=== PATIENT | female | born 1945 | race Caucasian/White ===

== ENCOUNTER → 2017-01-16 | Outpatient (CLI) | payer MEDICARE ==
[2017-01-16 09:57] LABS: Anion Gap 8 mmol/L; Blood Urea Nitrogen 13 mg/dL (7-17); Calcium 9.3 mg/dL (8.4-10.2); Carbon Dioxide 23 mmol/L (22-30); Chloride 109 mmol/L (98-107); Glucose 78 mg/dL (74-99); Non-African American GFR(MDRD) >60 (>60 ml/min/1.73 sqM); Potassium 4.3 mmol/L (3.5-5.1); Sodium 140 mmol/L (137-145)
[2017-01-16 10:00] LABS: Basophils # (A) 0.1 k/uL (0-0.2); Basophils % (A) 1 %; CH 31.6; CHCM 33.1; Eosinophils # (A) 0.2 k/uL (0-0.7); Eosinophils % (A) 3 %; HCT 37.4 % (34.0-46.0); HDW 2.45; HGB 12.1 gm/dL (11.4-16.0); Luc # (Auto) 0.11; Luc % (Auto) 2; Lymphocytes % (A) 35 %; MCH 30.9 pg (25.0-35.0); MCHC 32.3 g/dL (31.0-37.0); MCV 95.7 fL (80.0-100.0); Mean Platelet Volume 7.4; Monocytes # (A) 0.3 k/uL (0-1.0); Monocytes % (A) 6 %; Neutrophils # (A) 2.9 k/uL (1.3-7.7); Neutrophils % (A) 52 %; RDW 13.2 % (11.5-15.5); WBC 5.6 k/uL (3.8-10.6)
== END | disposition home or self-care (01) ==
LOC: LABPAT 09:19
PROVIDERS: ATTEND Urology
DX: Z01.812 Encounter for preprocedural laboratory examination (principal); E03.9 Hypothyroidism, unspecified; N39.41 Urge incontinence; N39.0 Urinary tract infection, site not specified
CPT/HCPCS: 80048; 85025; 87086

== ENCOUNTER 2017-01-24 07:24 | Day surgery (SDC) | payer MEDICARE ==
[2017-01-17 15:25] VITALS: BMI 24.7
[~2017-01-24 07:24] MED LIST: CLINDAMYCIN 900 MG in DEXTROSE 5% IN WATER 50 ML IVPB ONE; DEXAMETHASONE SOD PHOSPHATE 10 MG/ML 1 ML VIAL IV ONE; HYDROmorphone 1 MG/ML 1 ML SYRINGE IVP PRN; LACTATED RINGERS 1,000 ML IV SCH; ONDANSETRON 4 MG/2 ML VIAL IVP ONE
[2017-01-24 08:11] VITALS: RESP 16
[2017-01-24] MEDS ORDERED: LIDOCAINE 1% 20 ML VIAL (10MG/ML) FOR IV START INTRADERMA ONE (08:11)
[2017-01-24] MEDS ORDERED: fentaNYL (PF) 50 MCG/ML 2 ML AMP ONE (09:29)
[2017-01-24] MEDS ORDERED: PROPOFOL 10 MG/ML 20 ML VIAL IV ONE (09:29)
[2017-01-24] MEDS ORDERED: MIDAZOLAM 2 MG/2 ML VIAL ONE (09:29)
[2017-01-24] MEDS ORDERED: ePHEDrine SULFATE/0.9% NACL/PF 50 MG/5 ML SYRINGE IV ONE (09:29)
[2017-01-24] MEDS ORDERED: BUPIVACAIN-EPI 0.5%-1:200,000 30 ML VIAL SQ ONE (09:50)
[2017-01-24] MEDS ORDERED: LACTATED RINGERS 1,000 ML IV ONE ×4 (10:32→11:28)
--- NOTE | 2017-01-24 10:39 | P.OP ---
Date of Procedure: 01/24/17 Preoperative Diagnosis: Urinary Urge Incontinence, Incomplete Bladder Emptying Postoperative Diagnosis: Same Procedure(s) Performed: Takedown of TOT sling Implants: Anesthesia: GETA Surgeon: Sandoval Nieves Estimated Blood Loss (ml): 50 IV fluids (ml): 900 Pathology: none sent Condition: stable Disposition: PACU Indications for Procedure: She is a 71 year old female with a history of A & P repair, excision of vaginal cystic lesion, and TOT done in [place] on 06/07/2016. She had urinary retention after the surgery, requiring a catheter for a week followed by [facility] for a week or more. She has been on Tolterodine LA 4 mg daily since the surgery, due to urgency and urge icontinence. She still feels that she is not emptying her bladder. She has to double void and reports nocturia times 3-4. UDS shows uninhibited contractions, and she appears to have bladder outflow obstruction with incomplete bladder emptying. I have reviewed her surgical records and suggested she undergo exploration with division of the sling. The procedure was reviewed in detail with the patient and her . I explained potential risks , which include anesthesia, bleeding, infection, lower urinary tract injury, persistent obstruction, persistent UUI, and recurrent NELDA. Operative Findings: Synthetic TOT sling cut left of midline. Description of Procedure: The patient was taken to the operating room and placed in the dorsal lithotomy position, with her legs supported in Noe stirrups. The perineum, lower abdomen, and vagina were prepped and draped sterilely. A 16-Martiniquais Shipman catheter was placed. 0.5% Marcaine with epinephrine was injected submucosally within the anterior vaginal wall, over the urethra. The scalpel was then used to make an anterior midline vaginal incision over the urethra. Metzenbaum scissors were used to dissect laterally within the submucosal plane on the left side. The synthetic sling was isolated. It was noted to be taught. Metzenbaum scissors were used to divide this on the left side, away from the midline. Cystoscopy was performed. The 30 lens was used to introduce the 19-Martiniquais Storz cystoscopic sheath through the urethra and into the bladder under direct vision. The urethra and bladder were unremarkable. There was no evidence of perforation. Both ureteral orifices were of normal anatomic location and configuration, and clear urine effluxed from both. No tumors or foreign bodies were seen. The bladder was emptied and the cystoscope was removed. A submucosal bleeder was controlled using a 4-0 Vicryl suture in a figure-of- eight fashion. Any other bleeders were controlled with electrocautery, attaining excellent hemostasis. The vaginal incision was then closed longitudinally using 2-0 Vicryl suture in a running fashion. All sponge and needle counts were correct. The patient tolerated the procedure well was taken to the recovery room in stable condition.
[2017-01-24 10:54] VITALS: TEMP 97.3
[2017-01-24 13:49] VITALS: BP 128/63; PULSE 51
== END 2017-01-24 14:00 | disposition home or self-care (01) ==
LOC: OR 07:24
PROVIDERS: ATTEND Urology
DX: N39.46 Mixed incontinence (principal); R33.9 Retention of urine, unspecified; R35.0 Frequency of micturition; R35.1 Nocturia; I34.1 Nonrheumatic mitral (valve) prolapse; E03.9 Hypothyroidism, unspecified; N39.0 Urinary tract infection, site not specified; M19.90 Unspecified osteoarthritis, unspecified site; M41.9 Scoliosis, unspecified; F41.9 Anxiety disorder, unspecified; J45.909 Unspecified asthma, uncomplicated; Z98.51 Tubal ligation status; Z79.82 Long term (current) use of aspirin; Z79.899 Other long term (current) drug therapy; Z91.041 Radiographic dye allergy status; Z91.040 Latex allergy status
CPT/HCPCS: 57287; J2250; J1100; J2405; J3010; J2704

== ENCOUNTER → 2022-01-01 | Outpatient (CLI) | payer MEDICARE ==
--- NOTE | 2022-01-02 09:07 | MM ---
Reason for Exam: Screening (asymptomatic). Last mammogram was performed 1 year(s) and 6 month(s) ago. Patient History: 1990, Lumpectomy on the Right side. Benign Ultrasound-Guided Cyst Aspiration. Risk Values: Bety 5 year model risk: 1.2%. NCI Lifetime model risk: 2.7%. Prior Study Comparison: 06/04/2018 Bilateral MG 3D screening mammo w/[facility], [place]. 06/09/2019 Bilateral MG 3D screening mammo w/[facility], [place]. 06/24/2020 Bilateral MG 3D screening mammo w/[facility], [place]. Tissue Density: The breast tissue is heterogeneously dense. This may lower the sensitivity of mammography. Findings: Analyzed By CAD. There is no suspicious group of microcalcifications or new suspicious mass in either breast. Benign calcifications are noted. Overall Assessment: Benign, BI-RAD 2 Management: Screening Mammogram of both breasts in 1 year. A clinical breast exam by your physician is recommended on an annual basis and results should be correlated with mammographic findings. Electronically signed and approved by: Gee Ly M.D. Radiologis
== END | disposition home or self-care (01) ==
LOC: RADMAMWWP 12:32
PROVIDERS: ATTEND Obstetrics & Gynecology
DX: Z12.31 Encounter for screening mammogram for malignant neoplasm of breast (principal)
CPT/HCPCS: 77063; 77067

== ENCOUNTER → 2023-11-01 | Outpatient (CLI) | payer MEDICARE ==
--- NOTE | 2023-11-21 11:43 | CT ---
EXAMINATION TYPE: CT wrist RT wo con DATE OF EXAM: 11/01/2023 4:01 PM COMPARISON: No relevant priors available CLINICAL INDICATION:Female, 78 years old with history of S62.164A NONDISP FX OF PISIFORM, RIGHT WRIST , INIT; PHH, Nondisplaced fx of pisiform, rt wrist. TECHNIQUE: Noncontrast CT was obtained of the right wrist. Axial coronal and sagittal reformatted im ages, soft tissue and bone window were submitted for review. 3-D reconstruction was created on a [employer] workstation. Contrast used: None. CT DLP: 141.9 mGycm, Automated exposure control for dose reduction was used. FINDINGS: Bone: Osseous mineralization appears appropriate. No lytic/blastic lesion is seen. Mild osteoarthritic colby ges. No erosions. No clearly visible fracture or evidence of dislocation. Pisiform, hamate, scaphoid look to be intact. No abnormal widening at the SL interspace. Soft tissues: Soft tissues are unremarkable. No focal fluid collection, soft tissue gas, or radiopaque foreign body is seen. A couple small linear densities seen dorsally at the level of the first carpal row favored to represent soft tissue calcifications, unlikely related to fracture however if so could be sequela of tiny chip fracture of the dorsal lunate, of uncertain age. Other: No other significant findings. IMPRESSION: No definite fracture or dislocation in the right wrist.
== END | disposition home or self-care (01) ==
LOC: RADCTMAIN 15:38
PROVIDERS: ATTEND Orthopaedic Surgery Hand Surgery
DX: S62.164A Nondisplaced fracture of pisiform, right wrist, initial encounter for closed fracture (principal); M25.531 Pain in right wrist; X58.XXXA Exposure to other specified factors, initial encounter

== ENCOUNTER 2023-12-09 12:37 | Day surgery (SDC) | payer MEDICARE ==
[~2023-12-09 12:37] MED LIST changes: -CLINDAMYCIN 900 MG in DEXTROSE 5% IN WATER 50 ML IVPB ONE; -DEXAMETHASONE SOD PHOSPHATE 10 MG/ML 1 ML VIAL IV ONE; -HYDROmorphone 1 MG/ML 1 ML SYRINGE IVP PRN; -ONDANSETRON 4 MG/2 ML VIAL IVP ONE
[2023-12-09 13:05] VITALS: TEMP 98.3
[2023-12-09] MEDS: IV FLUID CONTINUATION 1,000 ML IV ONE (13:18)
[2023-12-09] MEDS: ONDANSETRON 4 MG/2 ML VIAL IVP STA (14:42)
[2023-12-09] MEDS ORDERED: PROPOFOL 10 MG/ML 20 ML VIAL IV ONE (15:08)
--- NOTE | 2023-12-09 15:08 | P.GSHP ---
History of Present Illness H&P Date: 12/09/23 Chief Complaint: screening colonoscopy this a 78-year-old female [facility] had issues with GERD and dysphagia. Patient presents today for EGD. Past Medical History Past Medical History: Asthma, GERD/Reflux, Hyperlipidemia, Hypertension, Mitral Valve Prolapse (MVP), Osteoarthritis (OA), Thyroid Disorder Additional Past Medical History / Comment(s): urinary urgency and nighttime frequency, POTS, UTI's, states "slow heart rate and low b/p"; possible hx. TIA seen on MRI per pt. Tremors. right shoulder arthritis. Current "raspy" voice, reflux, nausea in am. History of Any Multi-Drug Resistant Organisms: None Reported Past Surgical History: Appendectomy, Bladder Surgery, Breast Surgery, Cholecystectomy, Heart Catheterization, Hysterectomy, Joint Replacement, Orthopedic Surgery Additional Past Surgical History / Comment(s): cystocele/rectocele, bladder sling, rt knee arthroscopy, RIGHT TOTAL KNEE, oral surgery to roof of mouth, ri ght nipple surgery, sinus surgery Past Anesthesia/Blood Transfusion Reactions: Previous Problems w/ Anesthesia, Postoperative Nausea & Vomiting (PONV) Additional Past Anesthesia/Blood Transfusion Reaction / Comment(s): drop in BP and pulse with anesthesia Smoking Status: Never smoker - Past Family History Mother Additional Family Medical History / Comment(s): heart and bowel problems Father Family Medical History: Diabetes Mellitus, Seizure Disorder Additional Family Medical History / Comment(s): heart problems Sister(s) Family Medical History: Cancer Additional Family Medical History / Comment(s): 2 sisters breast [place] Medications and Allergies Home Medications Medication Instructions Recorded Confirmed Type Levothyroxine Sodium [Synthroid] 75 mcg PO QAM 11/09/13 12/05/23 History Latanoprost Ophth [Xalatan 0.005%] 1 drops BOTH EYES HS 03/25/15 12/05/23 History Biotin 5 mg PO DAILY 12/16/15 12/05/23 History Cranberry Fruit Extract [Cranberry] 500 mg PO DAILY 12/16/15 12/05/23 History Glucosamine/Chondr Enriquez A Sod [Osteo 1 each PO DAILY 12/16/15 12/05/23 History Bi-Flex Caplet] Krill/Om-3/Dha/Epa/Phospho/Ast 1 each PO DAILY 12/16/15 12/05/23 History [[place]-3 Krill Oil 300 mg Sfgl] Multivitamins, Thera [Multivitamin] 1 tab PO DAILY 12/16/15 12/05/23 History Azelastine HCl [Astepro] 1 spray NASAL BID 12/05/23 12/09/23 History Coconut Oil 1,000 mg PO DAILY 12/05/23 12/05/23 History Famotidine [Pepcid] 20 mg PO BID 12/05/23 12/09/23 History Losartan [Cozaar] 12.5 mg PO HS 12/05/23 12/05/23 History Primidone [Mysoline] 25 mg PO BID 12/05/23 12/05/23 History Slow-Mag 2 tab PO DAILY 12/05/23 12/05/23 History Tart Arita 1 dose PO BID 12/05/23 12/05/23 History Allergies Allergy/AdvReac Type Severity Reaction Status Date / Time iodine Allergy Severe Anaphylaxis Verified 12/09/23 12:55 latex Allergy Severe Swelling, Verified 12/09/23 12:55 itching Penicillins Allergy Severe Rash/Hives, Verified 12/09/23 12:55 SOB cephalexin monohydrate Allergy Unknown Rash/Hives Verified 12/09/23 12:55 [From Keflex] gemifloxacin mesylate Allergy Unknown Nausea & Verified 12/09/23 12:55 [From Factive] Vomiting nitrofurantoin Allergy Unknown Vomiting Verified 12/09/23 12:55 [From Macrobid] nitrofurantoin Allergy Unknown Vomiting Verified 12/09/23 12:55 macrocrystalline [From Macrobid] sulfasalazine Allergy Unknown Rash/Hives Verified 12/09/23 12:55 [From Azulfidine] verapamil HCl [From Verelan] Allergy Unknown LOW BLOOD Verified 12/09/23 12:55 PRESSURE ciprofloxacin Allergy Unknown Verified 12/09/23 12:55 prednisone Allergy Dyspnea, Verified 12/09/23 12:55 RED SKIN levofloxacin AdvReac Unknown Verified 12/09/23 12:55 x-ray dye Allergy Severe Anaphylaxis Uncoded 12/09/23 12:55 noroxin Allergy Unknown Rash/Hives, Uncoded 12/09/23 12:55 vomiting antibiotics w/ SE of AdvReac tendonitis Uncoded 12/09/23 12:55 tendonitis Surgical - Exam Vital Signs Temp Pulse Resp BP Pulse Ox 98.3 F 63 18 171/72 99 12/09/23 13:04 12/09/23 13:04 12/09/23 13:04 12/09/23 13:04 12/09/23 13:04 - General well developed, well nourished, no distress - Eyes PERRL - ENT normal pinna - Neck no masses - Respiratory normal expansion - Cardiovascular Rhythm: regular - Abdomen Abdomen: soft, non tender Assessment and Plan Assessment: GERD, dysphagia. We'll perform EGD
--- NOTE | 2023-12-09 15:15 | P.OP ---
Date of Procedure: 12/09/23 Preoperative Diagnosis: dysphagia Postoperative Diagnosis: antral gastritis Hiatal hernia Esophagitis Procedure(s) Performed: EGD Anesthesia: MAC Surgeon: Art Edwards Pathology: other (antrum, esophagus) Condition: stable Disposition: PACU Description of Procedure: the patient's placed on the endoscopy table in the lateral position. She received IV sedation. The gastroscope placed oropharynx past esophagus and stomach. Scope was placed through the pylorus. The first and second portion of the duodenum appeared normal.scope was then brought back the antrum this appeared mildly inflamed. This was biopsied. The scope was then retroflexed and there was a moderate size hiatal hernia. The GE junction was at 38 cm. The distal esophagus appeared to be inflamed. There is evidence of a Schatzki ring forming. inflamed esophagus was biopsied. The proximal esophagus appeared normal. Scope was withdrawn for patient.
[2023-12-09 15:23] VITALS: RESP 16
[2023-12-09 15:38] VITALS: BP 152/68; PULSE 52
== END 2023-12-09 15:52 | disposition home or self-care (01) ==
LOC: ORWHC2ENDO 12:37
PROVIDERS: ATTEND Surgery
DX: K29.70 Gastritis, unspecified, without bleeding (principal); K21.00 Gastro-esophageal reflux disease with esophagitis, without bleeding; K44.9 Diaphragmatic hernia without obstruction or gangrene; J45.909 Unspecified asthma, uncomplicated; E78.5 Hyperlipidemia, unspecified; I10 Essential (primary) hypertension; I34.1 Nonrheumatic mitral (valve) prolapse; E07.9 Disorder of thyroid, unspecified; Z79.890 Hormone replacement therapy; Z79.899 Other long term (current) drug therapy; Z88.0 Allergy status to penicillin; Z88.1 Allergy status to other antibiotic agents; Z88.2 Allergy status to sulfonamides; Z88.8 Allergy status to other drugs, medicaments and biological substances; Z91.040 Latex allergy status; Z91.041 Radiographic dye allergy status
CPT/HCPCS: 88305; 43239; J2405; J2704

== ENCOUNTER → 2023-12-24 | Outpatient (CLI) | payer MEDICARE ==
[2023-12-24 19:37] LABS: Basophils # (A) 0.05 X 10*3/uL (0.00-0.10); Basophils % (A) 0.7 %; Eosinophils # (A) 0.08 X 10*3/uL (0.04-0.35); Eosinophils % (A) 1.2 %; HCT 36.2 % (37.2-46.3); HGB 11.9 g/dL (12.0-15.0); Lymphocytes # (A) 2.64 X 10*3/uL (0.90-5.00); Lymphocytes % (A) 38.8 %; MCH 31.6 pg (27.0-32.0); MCHC 32.9 g/dL (32.0-37.0); MCV 96.3 FL (80.0-97.0); Mean Platelet Volume 9.2 FL (9.5-12.2); Monocytes # (A) 0.55 X 10*3/uL (0.20-1.00); Monocytes % (A) 8.1 %; NRBC Per 100 WBC 0 X 10*3/uL (0.00-0.01); Neutrophils # (A) 3.45 X 10*3/uL (1.80-7.70); Neutrophils % (A) 50.6 %; Platelet Count 255 X 10*3/uL (140-440); RBC 3.76 X 10*6/uL (4.10-5.20); RDW 12.9 % (11.5-14.5); WBC 6.81 X 10*3/uL (4.50-10.00)
== END | disposition home or self-care (01) ==
LOC: LABPAT 14:19
PROVIDERS: ATTEND Surgery
DX: Z01.818 Encounter for other preprocedural examination (principal); I51.89 Other ill-defined heart diseases; K21.00 Gastro-esophageal reflux disease with esophagitis, without bleeding; K44.9 Diaphragmatic hernia without obstruction or gangrene; R94.31 Abnormal electrocardiogram [ECG] [EKG]; R00.1 Bradycardia, unspecified
CPT/HCPCS: 85025; 93005

== ENCOUNTER 2024-01-09 10:57 | Observation (INO) | payer MEDICARE ==
--- NOTE | 2024-01-09 11:17 | ED ---
Abdominal Pain HPI - General Source: patient, RN notes reviewed Mode of arrival: wheelchair Limitations: no limitations <Jessica Kerr - Last Filed: 01/09/24 11:14> - General Source: patient, family, RN notes reviewed Mode of arrival: wheelchair Limitations: no limitations <Regulo Cheney - Last Filed: 01/09/24 19:16> - General Chief Complaint: Abdominal Pain Stated Complaint: can't swallow Time Seen by Provider: 01/09/24 11:14 - History of Present Illness Initial Comments: Quick Note: This is a 78-year-old female who presents to the emergency department for epigastric pain and inability to swallow. Patient had a [place] Fundoplication with Dr. Edwards on 01/05. States that she had been doing well after surgery, however when she woke up this morning she had severe pain in the epigastric region and has been unable to swallow anything. She called the office and they were able to see her at 2:15 today, however she states that she could not wait due to her discomfort. (Jessica Kerr) Patient is a 78-year-old female present to the emergency department with abdominal and chest discomfort. Patient was postop Trev fundoplication Saturday with Dr. Bauer. Patient was doing well this morning. Patient was sitting in her chair and drinking water when she had progressive discomfort in her lower sternal region and epigastrium. Patient states that is very difficult to swallow and swallowing makes symptoms significantly worse. Patient states it also hurts to take a deep breath. Patient denies dyspnea otherwise. Patient does have some abdominal discomfort as well, mostly epigastric however is not severe. No fever. (Regulo Cheney) - Related Data Home Medications Medication Instructions Recorded Confirmed Levothyroxine Sodium [Synthroid] 75 mcg PO QAM 11/09/13 01/03/24 Latanoprost Ophth [Xalatan 0.005%] 1 drops BOTH EYES HS 03/25/15 01/03/24 Biotin 5 mg PO DAILY 12/16/15 01/03/24 Cranberry Fruit Extract [Cranberry] 500 mg PO DAILY 12/16/15 01/03/24 Glucosamine/Chondr Enriquez A Sod [Osteo 1 each PO DAILY 12/16/15 01/03/24 Bi-Flex Caplet] Multivitamins, Thera [Multivitamin 1 tab PO DAILY 12/16/15 01/03/24 (formulary)] Azelastine HCl [Astepro] 1 spray NASAL BID 12/05/23 01/03/24 Coconut Oil 1,000 mg PO DAILY 12/05/23 01/03/24 Famotidine [Pepcid] 20 mg PO BID 12/05/23 01/03/24 Losartan [Cozaar] 12.5 mg PO HS 12/05/23 01/03/24 Primidone [Mysoline] 12.5 mg PO BID 12/05/23 01/03/24 Slow-Mag 2 tab PO DAILY 12/05/23 01/03/24 Tart Arita 1 dose PO BID 12/05/23 01/03/24 Previous Rx's Medication Instructions Recorded Atorvastatin [Lipitor] 40 mg PO HS #90 tab 01/07/24 HYDROcodone/APAP 5-325MG [Greenup 1 tab PO Q6HR PRN 3 Days #12 tab 01/07/24 5-325] Allergies Allergy/AdvReac Type Severity Reaction Status Date / Time iodine Allergy Severe Anaphylaxis Verified 01/09/24 19:13 latex Allergy Severe Swelling, Verified 01/09/24 19:13 itching Penicillins Allergy Severe Rash/Hives, Verified 01/09/24 19:13 SOB cephalexin monohydrate Allergy Unknown Rash/Hives Verified 01/09/24 19:13 [From Keflex] gemifloxacin mesylate Allergy Unknown Nausea & Verified 01/09/24 19:13 [From Factive] Vomiting nitrofurantoin Allergy Unknown Vomiting Verified 01/09/24 19:13 [From Macrobid] nitrofurantoin Allergy Unknown Vomiting Verified 01/09/24 19:13 macrocrystalline [From Macrobid] sulfasalazine Allergy Unknown Rash/Hives Verified 01/09/24 19:13 [From Azulfidine] verapamil HCl [From Verelan] Allergy Unknown LOW BLOOD Verified 01/09/24 19:13 PRESSURE ciprofloxacin Allergy Unknown Verified 01/09/24 19:13 prednisone Allergy Dyspnea, Verified 01/09/24 19:13 RED SKIN levofloxacin AdvReac Unknown Verified 01/09/24 19:13 x-ray dye Allergy Severe Anaphylaxis Uncoded 01/09/24 19:13 noroxin Allergy Unknown Rash/Hives, Uncoded 01/09/24 19:13 vomiting antibiotics w/ SE of AdvReac tendonitis Uncoded 01/09/24 19:13 tendonitis Review of Systems ROS Other: All systems not noted in ROS Statement are negative. <Jessica Kerr - Last Filed: 01/09/24 11:14> ROS Other: All systems not noted in ROS Statement are negative. Constitutional: Denies: fever Eyes: Denies: eye pain ENT: Denies: ear pain Respiratory: Reports: as per HPI. Denies: cough Cardiovascular: Reports: as per HPI, chest pain Gastrointestinal: Reports: as per HPI, abdominal pain Musculoskeletal: Denies: back pain <Regulo Cheney - Last Filed: 01/09/24 19:16> ROS Statement: Those systems with pertinent positive or pertinent negative responses have been documented in the HPI. Past Medical History Past Medical History: Asthma, GERD/Reflux, Hyperlipidemia, Hypertension, Mitral Valve Prolapse (MVP), Osteoarthritis (OA), Thyroid Disorder Additional Past Medical History / Comment(s): Urinary urgency and nighttime frequency, POTS, UTI's, "slow heart rate and low BP", possible hx TIA seen on MRI per pt, tremors, right shoulder arthritis, "raspy" voice, reflux, nausea in am. History of Any Multi-Drug Resistant Organisms: None Reported Past Surgical History: Appendectomy, Bladder Surgery, Breast Surgery, Cholecystectomy, Heart Catheterization, Hernia Repair, Hysterectomy, Joint Replacement, Orthopedic Surgery Additional Past Surgical History / Comment(s): Cystocele/rectocele, bladder sling, right knee arthroscopy, total right knee replacement, oral surgery to roof of mouth, right nipple surgery, sinus surgery, EGD. Hiatial Hernia repair (december 2023) Past Anesthesia/Blood Transfusion Reactions: Previous Problems w/ Anesthesia, Postoperative Nausea & Vomiting (PONV) Additional Past Anesthesia/Blood Transfusion Reaction / Comment(s): Drop in BP and pulse with anesthesia. Past Psychological History: No Psychological Hx Reported Smoking Status: Never smoker Past Alcohol Use History: Occasional - Past Family History Mother Additional Family Medical History / Comment(s): Heart and bowel problems. Father Family Medical History: Diabetes Mellitus, Seizure Disorder Additional Family Medical History / Comment(s): Heart problems. Sister(s) Family Medical History: Cancer Additional Family Medical History / Comment(s): 2 sisters - breast cancer. <Jessica Kerr - Last Filed: 01/09/24 11:14> General Exam Limitations: no limitations <Jessica Kerr - Last Filed: 01/09/24 11:14> Limitations: no limitations General appearance: alert, in no apparent distress Head exam: Present: normocephalic Eye exam: Present: normal appearance Neck exam: Present: normal inspection Respiratory exam: Present: normal lung sounds bilaterally. Absent: chest wall tenderness Cardiovascular Exam: Present: regular rate, normal rhythm Expanded Peripheral pulses: 2+: Radial (R), Radial (L), Posterior Tibialis (R), Posterior Tibialis (L) GI/Abdominal exam: Present: soft, tenderness (Mild to moderate diffuse ten derness), normal bowel sounds. Absent: distended, guarding, rebound, rigid, pulsatile mass Extremities exam: Present: normal inspection Neurological exam: Present: alert Psychiatric exam: Present: normal affect, normal mood Skin exam: Present: normal color <Regulo Cheney - Last Filed: 01/09/24 19:16> - General Exam Comments Initial Comments: Visual Physical Exam Vital signs reviewed General: Well-appearing, nontoxic, no acute distress. Head: Normocephalic, atraumatic Eyes: PERRLA, EOMI ENT: Airway patent Chest: Nonlabored breathing Skin: No visual rash, normal skin tone Neuro: Alert and oriented 3 Musculoskeletal: No gross abnormalities (Jessica Kerr) Course Vital Signs 01/09/24 01/09/24 01/09/24 11:08 15:44 17:38 Temperature 97.5 F L Pulse Rate 65 74 73 Respiratory 18 16 16 Rate Blood Pressure 164/77 183/79 172/75 O2 Sat by Pulse 99 95 92 L Oximetry 01/09/24 01/09/24 01/09/24 17:55 17:58 18:16 Temperature Pulse Rate 72 Respiratory 18 Rate Blood Pressure 154/75 O2 Sat by Pulse 85 L 96 95 Oximetry Medical Decision Making <Jessica Kerr - Last Filed: 01/09/24 11:14> - Lab Data Result diagrams: 01/09/24 11:23 01/09/24 11:23 <Regulo Cheney - Last Filed: 01/09/24 19:16> - Medical Decision Making I performed the QuickNote portion of this chart. Signed Jessica Kerr PA-C. (Jessica Kerr) Was pt. sent in by a medical professional or institution ([facility], [facility], urgent care, hospital, or prison...) When possible be specific @ -No Did you speak to anyone other than the patient for history (EMS, parent, family, police, friend...)? What history was obtained from this source @ - is present helps provide history including when surgery occurred Did you review nursing and triage notes (agree or disagree)? Why? @ -I reviewed and agree with nursing and triage notes Were old charts reviewed (outside hosp., previous admission, EMS record, old EKG, old radiological studies, urgent care reports/EKG's, prison records)? Report findings @ -Surgical history reviewed Differential Diagnosis (chest pain, altered mental status, abdominal pain women, abdominal pain men, vaginal bleeding, weakness, fever, dyspnea, syncope, headache, dizziness, GI bleed, back pain, seizure, CVA, palpatations, mental health, musculoskeletal)? @ -Differential Abdominal Pain Women: Appendicitis, Cholecystitis, diverticulosis, ischemic bowel, pancreatitis, hepatitis, UTI, gastroenteritis, AAA, incarcerated hernia, bowel obstruction, constipation, inflammatory bowel, hepatitis, peptic ulcer disease, splenic infarction, perforated viscus, vulvitis, ovarian torsion, PID, kidney stone, placenta abruption, this is not meant to be an all-inclusive list EKG interpreted by me (3pts min.). @ -As above X-rays interpreted by me (1pt min.). @ -None done CT interpreted by me (1pt min.). @ -CT scan chest abdomen pelvis does show postoperative changes, concern for left-sided pneumonia. U/S interpreted by me (1pt. min.). @ -None done What testing was considered but not performed or refused? (CT, X-rays, U/S, labs)? Why? @ -None What meds were considered but not given or refused? Why? @ -Antibiotics will be started Did you discuss the management of the patient with other professionals (professionals i.e. [facility], [employer], lab, RT, psych nurse, psychotherapist social worker, manager field investigations, teacher, tax compliance officer, pillowcase maker)? Give summary @ -Discussed with Dr. Dean who will admit covering Dr. Morales and Dr. Trvais will be placed on count Was smoking cessation discussed for >3mins.? @ -No Was critical care preformed (if so, how long)? @ -No Were there social determinants of health that impacted care today? How? (Homelessness, low income, unemployed, alcoholism, drug addiction, transportation, low edu. Level, literacy, decrease access to med. care, skilled nursing, rehab)? @ -No Was there de-escalation of care discussed even if they declined (Discuss DNR or withdrawal of care, Hospice)? DNR status @ -No What co-morbidities impacted this encounter? (DM, HTN, Smoking, COPD, CAD, Cancer, CVA, ARF, Chemo, Hep., AIDS, mental health diagnosis, sleep apnea, morbid obesity)? @ -Recent surgery Was patient admitted / discharged? Hospital course, mention meds given and route, prescriptions, significant lab abnormalities, going to OR and other pertinent info. @ -Patient presents postoperative with difficulty swallowing. CT scan without obvious surgical concern. Patient will be admitted with surgical consultation. IV antibiotics will be started for pneumonia on CT. Admission orders written Undiagnosed new problem with uncertain prognosis? @ -No Drug Therapy requiring intensive monitoring for toxicity (Heparin, Nitro, Insulin, Cardizem)? @ -No Were any procedures done? @ -No Diagnosis/symptom? @ -Pneumonia, postop pain Acute, or Chronic, or Acute on Chronic? @ -Acute, acute Uncomplicated (without systemic symptoms) or Complicated (systemic symptoms)? @ -Default Side effects of treatment? @ -No Exacerbation, Progression, or Severe Exacerbation? @ -No Poses a threat to life or bodily function? How? (Chest pain, USA, CT, pneumonia, PE, COPD, DKA, ARF, appy, cholecystitis, CVA, Diverticulitis, Homicidal, Suicidal, threat to staff... and all critical care pts) @ -Pulmonary and GI (Regulo Cheney) - Lab Data Lab Results 01/09/24 01/09/24 01/09/24 Range/Units 11:23 11:23 11:23 WBC 5.8 (3.8-10.6) k/uL RBC 3.79 L (3.80-5.40) m/uL Hgb 12.1 (11.4-16.0) gm/dL Hct 36.7 (34.0-46.0) % MCV 96.7 (80.0-100.0) fL MCH 31.8 (25.0-35.0) pg MCHC 32.9 (31.0-37.0) g/dL RDW 12.5 (11.5-15.5) % Plt Count 252 (150-450) k/uL MPV 7.0 Neutrophils % 64 % Lymphocytes % 23 % Monocytes % 6 % Eosinophils % 5 % Basophils % 1 % Neutrophils # 3.7 (1.3-7.7) k/uL Lymphocytes # 1.3 (1.0-4.8) k/uL Monocytes # 0.4 (0-1.0) k/uL Eosinophils # 0.3 (0-0.7) k/uL Basophils # 0.0 (0-0.2) k/uL Sodium 139 (137-145) mmol/L Potassium 4.3 (3.5-5.1) mmol/L Chloride 105 (98-107) mmol/L Carbon Dioxide 29 (22-30) mmol/L Anion Gap 5 mmol/L BUN 11 (7-17) mg/dL Creatinine 0.71 (0.52-1.04) mg/dL Est GFR (CKD-EPI)AfAm >90 (>60 ml/min/1.73 sqM) Est GFR (CKD-EPI)NonAf 83 (>60 ml/min/1.73 sqM) Glucose 95 (74-99) mg/dL Plasma Lactic Acid Addison 0.9 (0.7-2.0) mmol/L Calcium 9.4 (8.4-10.2) mg/dL Total Bilirubin 0.6 (0.2-1.3) mg/dL AST 44 H (14-36) U/L ALT 28 (4-34) U/L Alkaline Phosphatase 82 (38-126) U/L Troponin I (0.000-0.034) ng/mL Total Protein 6.5 (6.3-8.2) g/dL Albumin 3.8 (3.5-5.0) g/dL Amylase 43 (30-110) U/L Lipase 61 (23-300) U/L Urine Color Urine Appearance (Clear) Urine pH (5.0-8.0) Ur Specific Lowry (1.001-1.035) Urine Protein (Negative) Urine Glucose (UA) (Negative) Urine Ketones (Negative) Urine Blood (Negative) Urine Nitrite (Negative) Urine Bilirubin (Negative) Urine Urobilinogen (<2.0) mg/dL Ur Leukocyte Esterase (Negative) Urine RBC (0-5) /hpf Urine WBC (0-5) /hpf Ur Squamous Epith Cells (0-4) /hpf 01/09/24 01/09/24 Range/Units 11:23 12:04 WBC (3.8-10.6) k/uL RBC (3.80-5.40) m/uL Hgb (11.4-16.0) gm/dL Hct (34.0-46.0) % MCV (80.0-100.0) fL MCH (25.0-35.0) pg MCHC (31.0-37.0) g/dL RDW (11.5-15.5) % Plt Count (150-450) k/uL MPV Neutrophils % % Lymphocytes % % Monocytes % % Eosinophils % % Basophils % % Neutrophils # (1.3-7.7) k/uL Lymphocytes # (1.0-4.8) k/uL Monocytes # (0-1.0) k/uL Eosinophils # (0-0.7) k/uL Basophils # (0-0.2) k/uL Sodium (137-145) mmol/L Potassium (3.5-5.1) mmol/L Chloride (98-107) mmol/L Carbon Dioxide (22-30) mmol/L Anion Gap mmol/L BUN (7-17) mg/dL Creatinine (0.52-1.04) mg/dL Est GFR (CKD-EPI)AfAm (>60 ml/min/1.73 sqM) Est GFR (CKD-EPI)NonAf (>60 ml/min/1.73 sqM) Glucose (74-99) mg/dL Plasma Lactic Acid Addison (0.7-2.0) mmol/L Calcium (8.4-10.2) mg/dL Total Bilirubin (0.2-1.3) mg/dL AST (14-36) U/L ALT (4-34) U/L Alkaline Phosphatase (38-126) U/L Troponin I <0.012 (0.000-0.034) ng/mL Total Protein (6.3-8.2) g/dL Albumin (3.5-5.0) g/dL Amylase (30-110) U/L Lipase (23-300) U/L Urine Color Colorless Urine Appearance Clear (Clear) Urine pH 6.5 (5.0-8.0) Ur Specific Lowry 1.005 (1.001-1.035) Urine Protein Negative (Negative) Urine Glucose (UA) Negative (Negative) Urine Ketones Negative (Negative) Urine Blood Negative (Negative) Urine Nitrite Negative (Negative) Urine Bilirubin Negative (Negative) Urine Urobilinogen <2.0 (<2.0) mg/dL Ur Leukocyte Esterase Trace H (Negative) Urine RBC <1 (0-5) /hpf Urine WBC 2 (0-5) /hpf Ur Squamous Epith Cells 2 (0-4) /hpf Disposition <Jessica Kerr - Last Filed: 01/09/24 11:14> Is patient prescribed a controlled substance at d/c from ED?: No Time of Disposition: 19:16 <Regulo Cheney - Last Filed: 01/09/24 19:16> Clinical Impression: Post-operative pain, Pneumonia Disposition: ADMITTED IP TO THIS HOSP Referrals: Anibal Morales [Primary Care Provider] - 1-2 days
[2024-01-09 11:52] LABS: Basophils % (A) 1 %; Eosinophils # (A) 0.3 k/uL (0-0.7); Eosinophils % (A) 5 %; HCT 36.7 % (34.0-46.0); HGB 12.1 gm/dL (11.4-16.0); Lymphocytes # (A) 1.3 k/uL (1.0-4.8); Lymphocytes % (A) 23 %; MCH 31.8 pg (25.0-35.0); MCHC 32.9 g/dL (31.0-37.0); MCV 96.7 fL (80.0-100.0); Monocytes # (A) 0.4 k/uL (0-1.0); Monocytes % (A) 6 %; Neutrophils # (A) 3.7 k/uL (1.3-7.7); Neutrophils % (A) 64 %; Platelet Count 252 k/uL (150-450); RBC 3.79 m/uL (3.80-5.40); RDW 12.5 % (11.5-15.5); WBC 5.8 k/uL (3.8-10.6)
[2024-01-09 12:03] LABS: ALT 28 U/L (4-34); AST 44 U/L (14-36); African American GFR (CKD) >90 (>60 ml/min/1.73 sqM); Albumin 3.8 g/dL (3.5-5.0); Alkaline Phosphatase 82 U/L (38-126); Amylase 43 U/L (30-110); Anion Gap 5 mmol/L; Blood Urea Nitrogen 11 mg/dL (7-17); Calcium 9.4 mg/dL (8.4-10.2); Carbon Dioxide 29 mmol/L (22-30); Chloride 105 mmol/L (98-107); Glucose 95 mg/dL (74-99); Lipase 61 U/L (23-300); Non-African American GFR(CKD) 83 (>60 ml/min/1.73 sqM); Potassium 4.3 mmol/L (3.5-5.1); Sodium 139 mmol/L (137-145); Total Bilirubin 0.6 mg/dL (0.2-1.3); Total Protein 6.5 g/dL (6.3-8.2)
[2024-01-09 12:16] LABS: Appearance,Urine Clear (Clear); Bilirubin,Urine Negative (Negative); Blood,Urine Negative (Negative); Color,Urine Colorless; Glucose,Urine (UA) Negative (Negative); Ketones,Urine Negative (Negative); Leukocyte Esterase,Urine Trace (Negative); Nitrite,Urine Negative (Negative); PH, Urine 6.5 (5.0-8.0); Protein,Urine Negative (Negative); RBC,Urine <1 /hpf (0-5); Specific Gravity,Urine 1.005 (1.001-1.035); Squamous Epithelial Cell,Urine 2 /hpf (0-4); Urobilinogen,Urine <2.0 mg/dL (<2.0); WBC,Urine 2 /hpf (0-5)
--- NOTE | 2024-01-09 12:35 | XR ---
EXAMINATION TYPE: XR chest 2V, XR KUB DATE OF EXAM: 01/09/2024 COMPARISON: 11/09/2013 HISTORY: 78-year-old female with chest pain FINDINGS: Chest: Heart borderline enlarged. Aorta and pulmonary pulmonary vasculature are within normal limits. Hyperi nflation. Trace pleural effusions. Otherwise, remainder of the lungs appear clear. KUB: Cholecystectomy clips. Some surgical material at the GE junction. No dilated small bowel. Mild stool burden. Scattered air within the colon extending distally to the rectum. No suspicious calcifications seen. IMPRESSION: 1. Chest: Borderline cardiomegaly and COPD. There are trace bilateral pleural effusions. Clinically c orrelate for possible early fluid overload state. 2. KUB: Nonobstructive bowel gas pattern. Mild stool burden.
[2024-01-09] MEDS ORDERED: IOPAMIDOL CONTRAST (ORAL USE) VIAL PO PRN (15:46)
[2024-01-09] MEDS: methylPREDNISolone SOD SUCCI 125 MG/2 ML VIAL IV STA (16:10)
[2024-01-09] MEDS: SODIUM CHLORIDE 0.9% 1,000 ML IV STA (16:10)
[2024-01-09] MEDS: SODIUM CHLORIDE 0.9% 500 ML 500 ML IV STA (16:10)
[2024-01-09] MEDS: FAMOTIDINE 20 MG/2 ML VIAL IV STA (16:10)
[2024-01-09] MEDS: diphenhydrAMINE 50 MG/ML 1 ML VIAL IVP STA (16:11)
[2024-01-09] MEDS: MORPHINE SULFATE 4 MG/ML SYRINGE IVP STA ×2 (16:11→16:38)
[2024-01-09] MEDS: ONDANSETRON 4 MG/2 ML VIAL IVP STA (16:41)
--- NOTE | 2024-01-09 17:39 | CT ---
EXAMINATION TYPE: CT angio chest CT DLP: 952.5 combined DLP mGycm, Automated exposure control for dose reduction was used. DATE OF EXAM: 01/09/2024 5:19 PM COMPARISON: Chest radiograph from same day. Multiple CTs of the chest with most recent on . CLINICAL INDICATION:Female, 78 years old with history of dyspnea; dyspnea TECHNIQUE/CONTRAST: CTA scan of the thorax is performed with IV Contrast, patient injected with 80ml mL of Isovue 370, OR P images are created and reviewed these are created on a separate workstation.. FINDINGS: Pulmonary Artery: There is no evidence for a filling defect within the pulmonary vasculature to sugge st acute pulmonary embolism. The pulmonary artery is of normal size. Lungs/Pleura: Predominantly clear except the lung bases. There is patchy consolidation in the posteri or left lung base and groundglass airspace disease in the right lung base. Airway: Large airways are patent. Heart: Heart is within normal limits for size. Vasculature: No evidence of aortic aneurysm. Mediastinum: No gross evidence of adenopathy. Musculoskeletal: No acute osseous abnormalities Soft Tissues: Unremarkable. Lower neck: No significant findings. Upper Abdomen: Liver cyst. No acute findings.. IMPRESSION: 1. No evidence of pulmonary embolism. 2. Small volume consolidating pneumonia in the left lung base. Trace consolidation right lung base.
--- NOTE | 2024-01-09 17:55 | CT ---
EXAMINATION TYPE: CT abdomen pelvis w con CT DLP: 952.5 combined DLP mGycm, Automated exposure control for dose reduction was used. DATE OF EXAM: 01/09/2024 5:19 PM COMPARISON: CT chest today CLINICAL INDICATION:Female, 78 years old with history of post op abdominal pain, 20 min oral; post op Nissans' abd surgery, pain TECHNIQUE: Axial CT abdomen pelvis w con;Sagittal and coronal reformats were created on a separate w orkstation. Contrast used:80ml mL of Isovue 370 with IV Contrast, (none if empty) Oral contrast used: with Oral Contrast (none if empty) FINDINGS: LOWER CHEST: Small patch consolidation in the left lung base. Trace facet lobe consolidation right veronica ng base. Trace bilateral pleural effusions. ABDOMEN LIVER: Simple liver cyst. Otherwise unremarkable. GALLBLADDER AND BILE DUCTS: Cholecystectomy clips in the gallbladder fossa. PANCREAS: Unremarkable. SPLEEN: Unremarkable. ADRENAL GLANDS: Unremarkable. KIDNEYS AND URETERS: No evidence of hydronephrosis or renal calculus. The ureters are unremarkable. PELVIS BLADDER: Distended, perhaps overdistended REPRODUCTIVE: Uterus not identified. Perhaps post hysterectomy. Correlate with surgical history. ABDOMEN & PELVIS STOMACH AND BOWEL: Fundoplication. Strandiness in the fat around the stomach and pancreas may represe nt postoperative change. Cannot exclude a mild pancreatitis. No evidence of bowel obstruction. PERITONEUM/RETROPERITONEUM: No evidence of pneumoperitoneum or free fluid. VASCULATURE: No evidence of aortic aneurysm. MUSCULOSKELETAL: No acute osseous abnormalities LYMPH NODES: No gross evidence for lymphadenopathy. SOFT TISSUE/ABDOMINAL WALL: Unremarkable IMPRESSION: 1. Small patch consolidation in the left lung base. Trace lower lobe consolidation right lung base. Trace bilateral pleural effusions. 2. Fundoplication. Strandiness in the fat around the stomach and pancreas may represent postoperat sybil change. Cannot exclude a mild pancreatitis.
[2024-01-09] MEDS ORDERED: HYDROcodone/APAP 5-325MG 1 EACH TAB PO PRN (19:18)
[2024-01-09] MEDS ORDERED: PNEUMONIA PROTOCOL UTILIZED 1 EACH MISC PO PRN (19:20)
[2024-01-09] MEDS ORDERED: MORPHINE SULFATE 4 MG/ML SYRINGE IVP PRN (19:23)
[2024-01-09] MEDS: PANTOPRAZOLE 40 MG/10 ML VIAL IVP SCH (20:29)
[2024-01-09] MEDS: SODIUM CHLORIDE 0.9% 1,000 ML IV SCH (20:31)
[2024-01-09] MEDS: CEFEPIME 2 GM in SODIUM CHLORIDE 0.9% 100 ML IVPB STA (20:33)
[2024-01-09] MEDS: AZITHROMYCIN 500 MG in SODIUM CHLORIDE 0.9% 250 ML IVPB STA (21:58)
[2024-01-09] MEDS: FAMOTIDINE 20 MG TAB PO SCH (21:59)
[2024-01-09] MEDS: ATORVASTATIN 40 MG TAB PO SCH (21:59)
[2024-01-09] MEDS: LOSARTAN 25 MG TAB PO SCH (21:59)
--- NOTE | 2024-01-09 22:38 | P.HPIM ---
History of Present Illness H&P Date: 01/09/24 Chief Complaint: Abdominal pain Patient is a 78-year-old female with a past medical history of hypertension, hyperlipidemia, history of mitral valve prolapse, hypothyroidism and osteoarthritis and POTS and recent [place] fundoplication surgery. Patient was discharged home on 01/07/2024. Patient presents to ER with complaints of epigastric pain and unable to . patient is also having severe pain in the epigastric region and able to swallow anything. Today morning she was sitting in the chair and drinking water when she had progressive discomfort in her lower sternal region and epigastric region. Patient also states that she hurts when she takes deep breath. On admission blood pressure was elevated with SBP in 160s. 99% on room air. Patient is not tachycardic heart rate 65. Laboratory data showed WBC 5.8 hemoglobin 12.1 and platelets 252 Sodium 139 potassium 4.3 chloride 105 bicarb is 29 BUN 11 and creatinine 0.71 and blood sugar 95 liver enzymes showed AST 44 ALT 28 and alk phos 82 Chest x-ray showed borderline cardiomegaly and COPD. There are trace bilateral effusions. Correlate clinically for possible early fluid overload state. Nonobstructive bowel gas pattern. Mild stool burden. Lipase level 61 CTA chest showed no evidence of PE. Small volume consolidating pneumonia in the left lung base. Trace consolidation right lung base. CT of the abdomen pelvis showed Small patchy consolidation in the left lung base. Trace lower lobe consolidation right lung base. Trace bilateral pleural effusions. Fundoplication. Stranding is seen in the fat around the stomach and pancreas may represent postoperative change. Cannot exclude mild pancreatitis. Urinalysis is negative for infection. Review of Systems Constitutional: Patient denies any fever or chills . No generalized weakness or weight loss. Abdomen: Patient patient does have nausea and abdominal pain. No diarrhea. Constipation. Cardiovascular: Patient denies any chest pain. Mild short of breath no palpitations. Respiratory: patient denied any cough or sputum production. Shortness of breath and difficulty taking deep breaths. Neurologic: Patient denied any numbness or tingling. no headache. Musculoskeletal: Patient denies any complaints of joint swelling or deformity. Skin: Negative Psychiatric: Negative Endocrine: No heat or cold intolerance. No recent weight gain. Genitourinary: No dysuria or hematuria. All other 14 point ROS negative except the above Past Medical History Past Medical History: Asthma, GERD/Reflux, Hyperlipidemia, Hypertension, Mitral Valve Prolapse (MVP), Osteoarthritis (OA), Thyroid Disorder Additional Past Medical History / Comment(s): Urinary urgency and nighttime frequency, POTS, UTI's, "slow heart rate and low BP", possible hx TIA seen on MRI per pt, tremors, right shoulder arthritis, "raspy" voice, reflux, nausea in am. History of Any Multi-Drug Resistant Organisms: None Reported Past Surgical History: Appendectomy, Bladder Surgery, Breast Surgery, Cholecystectomy, Heart Catheterization, Hernia Repair, Hysterectomy, Joint Replacement, Orthopedic Surgery Additional Past Surgical History / Comment(s): Cystocele/rectocele, bladder sling, right knee arthroscopy, total right knee replacement, oral surgery to roof of mouth, right nipple surgery, sinus surgery, EGD. Hiatial Hernia repair (december 2023) Past Anesthesia/Blood Transfusion Reactions: Previous Problems w/ Anesthesia, Postoperative Nausea & Vomiting (PONV) Additional Past Anesthesia/Blood Transfusion Reaction / Comment(s): Drop in BP and pulse with anesthesia. Past Psychological History: No Psychological Hx Reported Smoking Status: Never smoker Past Alcohol Use History: Occasional - Past Family History Mother Additional Family Medical History / Comment(s): Heart and bowel problems. Father Family Medical History: Diabetes Mellitus, Seizure Disorder Additional Family Medical History / Comment(s): Heart problems. Sister(s) Family Medical History: Cancer Additional Family Medical History / Comment(s): 2 sisters - breast cancer. Medications and Allergies Home Medications Medication Instructions Recorded Confirmed Type Levothyroxine Sodium [Synthroid] 75 mcg PO DAILY 11/09/13 01/09/24 History Latanoprost Ophth [Xalatan 0.005%] 1 drop BOTH EYES HS 03/25/15 01/09/24 History Biotin 5 mg PO DAILY 12/16/15 01/09/24 History Cranberry Fruit Extract [Cranberry] 500 mg PO DAILY 12/16/15 01/09/24 History Glucosamine/Chondr Enriquez A Sod [Osteo 1 tab PO DAILY 12/16/15 01/09/24 History Bi-Flex Caplet] Multivitamins, Thera [Multivitamin 1 tab PO DAILY 12/16/15 01/09/24 History (formulary)] Azelastine HCl [Astepro] 1 spray NASAL BID 12/05/23 01/09/24 History Coconut Oil 1,000 mg PO DAILY 12/05/23 01/09/24 History Famotidine [Pepcid] 20 mg PO BID 12/05/23 01/09/24 History Losartan [Cozaar] 12.5 mg PO HS 12/05/23 01/09/24 History Primidone [Mysoline] 12.5 mg PO BID 12/05/23 01/09/24 History Slow-Mag 2 tab PO DAILY 12/05/23 01/09/24 History Tart Arita 1 dose PO BID 12/05/23 01/09/24 History Atorvastatin [Lipitor] 40 mg PO HS #90 tab 01/07/24 01/09/24 Rx HYDROcodone/APAP 5-325MG [[place] 1 tab PO Q6HR PRN 3 Days #12 tab 01/07/24 01/09/24 Rx 5-325] Allergies Allergy/AdvReac Type Severity Reaction Status Date / Time iodine Allergy Severe Anaphylaxis Verified 01/09/24 19:13 latex Allergy Severe Swelling, Verified 01/09/24 19:13 itching Penicillins Allergy Severe Rash/Hives, Verified 01/09/24 19:13 SOB cephalexin monohydrate Allergy Unknown Rash/Hives Verified 01/09/24 19:13 [From Keflex] gemifloxacin mesylate Allergy Unknown Nausea & Verified 01/09/24 19:13 [From Factive] Vomiting nitrofurantoin Allergy Unknown Vomiting Verified 01/09/24 19:13 [From Macrobid] nitrofurantoin Allergy Unknown Vomiting Verified 01/09/24 19:13 macrocrystalline [From Macrobid] sulfasalazine Allergy Unknown Rash/Hives Verified 01/09/24 19:13 [From Azulfidine] verapamil HCl [From Verelan] Allergy Unknown LOW BLOOD Verified 01/09/24 19:13 PRESSURE ciprofloxacin Allergy Unknown Verified 01/09/24 19:13 prednisone Allergy Dyspnea, Verified 01/09/24 19:13 RED SKIN levofloxacin AdvReac Unknown Verified 01/09/24 19:13 x-ray dye Allergy Severe Anaphylaxis Uncoded 01/09/24 19:13 noroxin Allergy Unknown Rash/Hives, Uncoded 01/09/24 19:13 vomiting antibiotics w/ SE of AdvReac tendonitis Uncoded 01/09/24 19:13 tendonitis Physical Exam Vitals: Vital Signs Temp Pulse Resp BP Pulse Ox 01/09/24 18:16 72 18 154/75 95 01/09/24 17:58 96 01/09/24 17:55 85 L 01/09/24 17:38 73 16 172/75 92 L 01/09/24 15:44 74 16 183/79 95 01/09/24 11:08 97.5 F L 65 18 164/77 99 Intake and Output 01/09/24 01/09/24 01/09/24 06:59 14:59 22:59 Other: Weight 65.771 kg PHYSICAL EXAMINATION: Patient is lying in the bed mild acute distress due to pain, awake alert and oriented.. HEENT: Normocephalic. Neck is supple. Pupils reactive. Nostrils clear. Oral cavity is moist. Neck reveals no JVD, carotid bruits, or thyromegaly. CHEST EXAMINATION: Trachea is central. Symmetrical expansion. Bibasilar diminished sounds. CARDIAC: Normal S1, S2 with no gallops. No murmurs ABDOMEN: Soft. Bowel sounds normal. No organomegaly. No abdominal bruits. Extremities: reveal no edema. No clubbing or cyanosis Neurologically awake, alert, oriented x3 with well-coordinated movements. No focal deficits noted Skin: No rash or skin lesions. Psychiatric: Coperative. Nonsuicidal, anxious. Musculoskeletal: No joint swelling or deformity. Normal range of motion. Results CBC & Chem 7: 01/09/24 11:23 01/09/24 11:23 Labs: Abnormal Lab Results - Last 24 Hours (Table) 01/09/24 01/09/24 01/09/24 Range/Units 11:23 11:23 12:04 RBC 3.79 L (3.80-5.40) m/uL AST 44 H (14-36) U/L Ur Leukocyte Esterase Trace H (Negative) Assessment and Plan Assessment: Epigastric pain and difficulty swallowing possible postoperative pain with stran ding fat around the stomach and pancreas. Left lower lobe consolidative changes possible pneumonia. Stool burden Recent history of fundoplication on 01/06/2024. Postoperatively patient was not bradycardic. Seen by cardiology. Hypertension Hyperlipidemia History of MVP Hypothyroidism GERD Asthma History of TIA DVT prophylaxis and GI prophylaxis heparin subcu and Pepcid Plan: Patient will be current on IV hydration with normal saline. Continue with antibiotics cefepime and azithromycin. Follow-up procalcitonin level. Encourage incentive spirometry. Symptomatic management for nausea and vomiting and pain management. Continue with home medications and follow-up closely. Surgery is also consulted for evaluation.
[2024-01-09] MEDS: LATANOPROST 0.005% OPHTH DROPS 2.5 ML BTL BOTH EYES SCH (22:58)
[2024-01-09] MEDS: PRIMIDONE 25 MG TAB PO SCH (22:58)
[2024-01-10] MEDS: CEFEPIME 2 GM in SODIUM CHLORIDE 0.9% 100 ML IVPB SCH ×2 (00:09→21:12)
[2024-01-10] MEDS: HEPARIN SODIUM,PORCINE 5,000 UNIT/ML 1 ML VIAL SQ SCH (00:10)
--- NOTE | 2024-01-10 07:56 | XR ---
EXAMINATION TYPE: XR chest 2V DATE OF EXAM: 01/10/2024 COMPARISON: 01/09/2024 HISTORY: Shortness of breath TECHNIQUE: Frontal and lateral views of the chest are obtained. FINDINGS: Scattered senescent parenchymal changes noted. Hyperinflation compatible with COPD. Small bilateral pleural effusions. No infiltrate seen. Heart size is stable. Mediastinal structures are stable and grossly unremarkable. No evidence for hilar prominence. Degenerative changes dorsal spine. IMPRESSION: 1. No evidence for acute pulmonary disease.
[2024-01-10] MEDS: LEVOTHYROXINE 75 MCG TAB PO SCH (08:20)
[2024-01-10] MEDS: AZITHROMYCIN 500 MG in SODIUM CHLORIDE 0.9% 250 ML IVPB SCH (09:07)
[2024-01-10] MEDS ORDERED: SENNOSIDES 8.6 MG TAB PO PRN (14:34)
--- NOTE | 2024-01-10 17:09 | P.GSCN ---
History of Present Illness Consult date: 01/10/24 Reason for Consult: Dysphagia History of present illness: 78-year-old female underwent laparoscopic repair hiatal hernia with [place] fundoplication on 01/05. Patient states she was doing well until yesterday afternoon when she woke up with chest pain. Said it was aggravated by swallowing. No vomiting. Says she was not able to take her pills because of the pain. Came to the ER for further evaluation. Underwent CT of the chest abdomen and pelvis. Mild inflammatory changes at the operative site were seen. No evidence of contrast extravasation or significant free air noted. Patient's white blood count normal. No tachycardia or fevers. Feels better today. Looking at the CAT scan there does appear to be some swelling of the wrap itself. On the CAT scan of the chest there is air and contrast within the esophagus suggesting some degree of hesitancy at the wrap site. No upper GI performed. Says she has discomfort when taking a deep breath. Denies abdominal pain at this time although in the ER apparently was having abdominal pain 2. Review of Systems The patient denies any acute changes in vision or hearing, no dysphagia or odynophagia, no dysuria or hematuria, no headache, no runny nose, no rectal bleeding or melena, no unexplained weight loss Past Medical History Past Medical History: Asthma, GERD/Reflux, Hyperlipidemia, Hypertension, Mitral Valve Prolapse (MVP), Osteoarthritis (OA), Thyroid Disorder Additional Past Medical History / Comment(s): Urinary urgency and nighttime frequency, POTS, UTI's, "slow heart rate and low BP", possible hx TIA seen on MRI per pt, tremors, right shoulder arthritis, "raspy" voice, reflux, nausea in am. History of Any Multi-Drug Resistant Organisms: None Reported Past Surgical History: Appendectomy, Bladder Surgery, Breast Surgery, Cholecystectomy, Heart Catheterization, Hernia Repair, Hysterectomy, Joint Replacement, Orthopedic Surgery Additional Past Surgical History / Comment(s): Cystocele/rectocele, bladder sling, right knee arthroscopy, total right knee replacement, oral surgery to roof of mouth, right nipple surgery, sinus surgery, EGD. Hiatial Hernia repair (december 2023) Past Anesthesia/Blood Transfusion Reactions: Previous Problems w/ Anesthesia, Postoperative Nausea & Vomiting (PONV) Additional Past Anesthesia/Blood Transfusion Reaction / Comm: Drop in BP and pulse with anesthesia. Past Psychological History: No Psychological Hx Reported Smoking Status: Never smoker Past Alcohol Use History: Occasional - Past Family History Mother Additional Family Medical History / Comment(s): Heart and bowel problems. Father Family Medical History: Diabetes Mellitus, Seizure Disorder Additional Family Medical History / Comment(s): Heart problems. Sister(s) Family Medical History: Cancer Additional Family Medical History / Comment(s): 2 sisters - breast cancer. Medications and Allergies Home Medications Medication Instructions Recorded Confirmed Type Levothyroxine Sodium [Synthroid] 75 mcg PO DAILY 11/09/13 01/09/24 History Latanoprost Ophth [Xalatan 0.005%] 1 drop BOTH EYES HS 03/25/15 01/09/24 History Biotin 5 mg PO DAILY 12/16/15 01/09/24 History Cranberry Fruit Extract [Cranberry] 500 mg PO DAILY 12/16/15 01/09/24 History Glucosamine/Chondr Enriquez A Sod [[place] 1 tab PO DAILY 12/16/15 01/09/24 History Bi-Flex Caplet] Multivitamins, Thera [Multivitamin 1 tab PO DAILY 12/16/15 01/09/24 History (formulary)] Azelastine HCl [Astepro] 1 spray NASAL BID 12/05/23 01/09/24 History Coconut Oil 1,000 mg PO DAILY 12/05/23 01/09/24 History Famotidine [Pepcid] 20 mg PO BID 12/05/23 01/09/24 History Losartan [Cozaar] 12.5 mg PO HS 12/05/23 01/09/24 History Primidone [Mysoline] 12.5 mg PO BID 12/05/23 01/09/24 History Slow-Mag 2 tab PO DAILY 12/05/23 01/09/24 History Tart Arita 1 dose PO BID 12/05/23 01/09/24 History Atorvastatin [Lipitor] 40 mg PO HS #90 tab 01/07/24 01/09/24 Rx HYDROcodone/APAP 5-325MG [[place] 1 tab PO Q6HR PRN 3 Days #12 tab 01/07/24 01/09/24 Rx 5-325] Allergies Allergy/AdvReac Type Severity Reaction Status Date / Time iodine Allergy Severe Anaphylaxis Verified 01/09/24 19:13 latex Allergy Severe Swelling, Verified 01/09/24 19:13 itching Penicillins Allergy Severe Rash/Hives, Verified 01/09/24 19:13 SOB cephalexin monohydrate Allergy Unknown Rash/Hives Verified 01/09/24 19:13 [From Keflex] gemifloxacin mesylate Allergy Unknown Nausea & Verified 01/09/24 19:13 [From Factive] Vomiting nitrofurantoin Allergy Unknown Vomiting Verified 01/09/24 19:13 [From Macrobid] nitrofurantoin Allergy Unknown Vomiting Verified 01/09/24 19:13 macrocrystalline [From Macrobid] sulfasalazine Allergy Unknown Rash/Hives Verified 01/09/24 19:13 [From Azulfidine] verapamil HCl [From Verelan] Allergy Unknown LOW BLOOD Verified 01/09/24 19:13 PRESSURE ciprofloxacin Allergy Unknown Verified 01/09/24 19:13 prednisone Allergy Dyspnea, Verified 01/09/24 19:13 RED SKIN levofloxacin AdvReac Unknown Verified 01/09/24 19:13 x-ray dye Allergy Severe Anaphylaxis Uncoded 01/09/24 19:13 noroxin Allergy Unknown Rash/Hives, Uncoded 01/09/24 19:13 vomiting antibiotics w/ SE of AdvReac tendonitis Uncoded 01/09/24 19:13 tendonitis Surgical - Exam Vital Signs Temp Pulse Resp BP Pulse Ox 97.5 F L 65 18 164/77 99 01/09/24 11:08 01/09/24 11:08 01/09/24 11:08 01/09/24 11:08 01/09/24 11:08 Physical exam: General: Well-developed, well-nourished HEENT: Normocephalic, sclerae nonicteric Abdomen: Incisions clean and dry, mild incisional tenderness, nondistended Extremities: No edema Neuro: Alert and oriented Results - Labs 01/09/24 11:23 01/09/24 11:23 Assessment and Plan (1) Post-operative pain Narrative/Plan: 78-year-old female with dysphagia and pain after recent hiatal hernia repair with fundoplication. If symptoms persist will order esophagram to evaluate the degree of tightness. For now we will continue to treat conservatively with sips of liquids, antiemetics, IV Decadron. Continue antiacids. Will follow. Current Visit: Yes Status: Acute Code(s): G89.18 - OTHER ACUTE POSTPROCEDURAL PAIN SNOMED Code(s): 348743311
--- NOTE | 2024-01-10 20:41 | XR ---
EXAMINATION TYPE: XR abdomen 1V DATE OF EXAM: 01/10/2024 Comparison: 01/09/2024 Clinical History: 78-year-old female with abdominal pain Findings: Residual oral contrast material scattered throughout the colon. No dilated small bowel is seen. Some surgical material at the GE junction suggesting interval bilateral hernia repair. There are some patc hy opacity in the medial left base. Prominent air within the stomach. Cholecystectomy clips. Impression: 1. Some patchy medial left basilar opacity could represent atelectasis versus infiltrate. 2. Nonobstructive bowel gas pattern. Scattered residual oral contrast material throughout the colon.
--- NOTE | 2024-01-11 01:18 | P.PN ---
Subjective Progress Note Date: 01/10/24 Patient is a 78-year-old female with a past medical history of hypertension, hyperlipidemia, history of mitral valve prolapse, hypothyroidism and osteoarthritis and POTS and recent [place] fundoplication surgery. Patient was discharged home on 01/07/2024. Patient presents to ER with complaints of epigastric pain and unable to . patient is also having severe pain in the epigastric region and able to swallow anything. Today morning she was sitting in the chair and drinking water when she had progressive discomfort in her lower sternal region and epigastric region. Patient also states that she hurts when she takes deep breath. On admission blood pressure was elevated with SBP in 160s. 99% on room air. Patient is not tachycardic heart rate 65. Laboratory data showed WBC 5.8 hemoglobin 12.1 and platelets 252 Sodium 139 potassium 4.3 chloride 105 bicarb is 29 BUN 11 and creatinine 0.71 and blood sugar 95 liver enzymes showed AST 44 ALT 28 and alk phos 82 Chest x-ray showed borderline cardiomegaly and COPD. There are trace bilateral effusions. Correlate clinically for possible early fluid overload state. Nonobstructive bowel gas pattern. Mild stool burden. Lipase level 61 CTA chest showed no evidence of PE. Small volume consolidating pneumonia in the left lung base. Trace consolidation right lung base. CT of the abdomen pelvis showed Small patchy consolidation in the left lung base. Trace lower lobe consolidation right lung base. Trace bilateral pleural effusions. Fundoplication. Stranding is seen in the fat around the stomach and pancreas may represent postoperative change. Cannot exclude mild pancreatitis. Urinalysis is negative for infection. 01/10/2024 Patient is currently sitting on side of the bed. Awake alert and oriented x 3. Abdominal pain and chest tightness is better than of yesterday. Patient is able to tolerate liquids. complains of bloating and abdominal. Did have a bowel movement today. No episodes of vomiting. Nausea is improving. No cough or sputum production. Patient has been afebrile. No new laboratory data today. Procalcitonin level is 0.07. Chest x-ray this morning showed no evidence for acute pulmonary disease. Cefepime has been discontinued. Current medications reviewed. Objective - Vital Signs Vital signs: Vital Signs Temp 98.2 F 01/10/24 19:38 Pulse 60 01/10/24 19:38 Resp 18 01/10/24 19:38 BP 169/74 01/10/24 19:38 Pulse Ox 96 01/10/24 19:38 FiO2 Intake & Output 01/10/24 01/10/24 01/11/24 06:59 18:59 06:59 Weight 65.771 kg Other: # Voids 1 1 - Exam PHYSICAL EXAMINATION: Patient is lying in the bed comfortably, no acute distress, awake alert and oriented.. HEENT: Normocephalic. Neck is supple. Pupils reactive. Nostrils clear. Oral cavity is moist. Neck reveals no JVD, carotid bruits, or thyromegaly. CHEST EXAMINATION: Trachea is central. Symmetrical expansion. Lung barragan clear to auscultation and percussion. CARDIAC: Normal S1, S2 with no gallops. No murmurs ABDOMEN: Soft. Bowel sounds hyperactive. Nontender... No organomegaly. No abdominal bruits. Extremities: reveal no edema. No clubbing or cyanosis Neurologically awake, alert, oriented x3 with well-coordinated movements. No focal deficits noted Skin: No rash or skin lesions. Psychiatric: Coperative. Nonsuicidal Musculoskeletal: No joint swelling or deformity. Normal range of motion. - Labs CBC & Chem 7: 01/09/24 11:23 01/09/24 11:23 Assessment and Plan Assessment: Epigastric pain and difficulty swallowing possible postoperative pain with stranding fat around the stomach and pancreas. Left lower lobe consolidative changes possible pneumonia. Repeat chest x-ray showed no acute process today. Procalcitonin level is not elevated. Stool burden Recent history of fundoplication on 01/06/2024. Postoperatively patient was not bradycardic. Seen by cardiology. Hypertension Hyperlipidemia History of MVP Hypothyroidism GERD Asthma History of TIA DVT prophylaxis and GI prophylaxis heparin subcu and Pepcid Plan: Patient will be current on IV hydration with normal saline. Cefepime has been discontinued.. Procalcitonin level is not elevated. Encourage incentive spirometry. Symptomatic management for nausea and vomiting and pain management. Currently on Liquid diet. Continue with home medications and follow-up closely. Surgery is recommending conservative management at this time. Time with Patient: Greater than 30
[2024-01-11 11:35] LABS: Basophils # (A) 0.04 X 10*3/uL (0.00-0.10); Basophils % (A) 0.5 %; Eosinophils # (A) 0.36 X 10*3/uL (0.04-0.35); Eosinophils % (A) 4.5 %; HCT 31.5 % (37.2-46.3); HGB 10.5 g/dL (12.0-15.0); Lymphocytes % (A) 37.8 %; MCH 32.2 pg (27.0-32.0); MCHC 33.3 g/dL (32.0-37.0); MCV 96.6 FL (80.0-97.0); Mean Platelet Volume 10.5 FL (9.5-12.2); Monocytes # (A) 0.53 X 10*3/uL (0.20-1.00); Monocytes % (A) 6.7 %; NRBC Per 100 WBC 0 X 10*3/uL (0.00-0.01); Neutrophils # (A) 3.96 X 10*3/uL (1.80-7.70); Neutrophils % (A) 49.9 %; Platelet Count 237 X 10*3/uL (140-440); RBC 3.26 X 10*6/uL (4.10-5.20); RDW 12.6 % (11.5-14.5); WBC 7.94 X 10*3/uL (4.50-10.00)
[2024-01-11 12:01] LABS: BUN/Creat Ratio 11.88 Ratio (12.00-20.00); Blood Urea Nitrogen 9.5 mg/dL (9.0-27.0); Calcium 8.9 mg/dL (8.7-10.3); Carbon Dioxide 22.8 mmol/L (21.6-31.8); Chloride 108 mmol/L (96-109); Glucose 94 mg/dL (70-110); Potassium 4.1 mmol/L (3.5-5.5); Sodium 141 mmol/L (135-145)
--- NOTE | 2024-01-11 17:54 | P.PN ---
Subjective Progress Note Date: 01/11/24 Interval History: Patient is a 78-year-old female with a past medical history of hypertension, hyperlipidemia, history of mitral valve prolapse, hypothyroidism and osteoarthritis and POTS and recent [place] fundoplication surgery. Patient was discharged home on 01/07/2024. Patient presents to ER with complaints of epigastric pain and unable to . patient is also having severe pain in the epigastric region and able to swallow anything. Today morning she was sitting in the chair and drinking water when she had progressive discomfort in her lower sternal region and epigastric region. Patient also states that she hurts when she takes deep breath. On admission blood pressure was elevated with SBP in 160s. 99% on room air. Patient is not tachycardic heart rate 65. Laboratory data showed WBC 5.8 hemoglobin 12.1 and platelets 252 Sodium 139 potassium 4.3 chloride 105 bicarb is 29 BUN 11 and creatinine 0.71 and blood sugar 95 liver enzymes showed AST 44 ALT 28 and alk phos 82 Chest x-ray showed borderline cardiomegaly and COPD. There are trace bilateral effusions. Correlate clinically for possible early fluid overload state. Nonobstructive bowel gas pattern. Mild stool burden. Lipase level 61 CTA chest showed no evidence of PE. Small volume consolidating pneumonia in the left lung base. Trace consolidation right lung base. CT of the abdomen pelvis showed Small patchy consolidation in the left lung base. Trace lower lobe consolidation right lung base. Trace bilateral pleural effusions. Fundoplication. Stranding is seen in the fat around the stomach and pancreas may represent postoperative change. Cannot exclude mild pancreatitis. Urinalysis is negative for infection. 01/10/2024 Patient is currently sitting on side of the bed. Awake alert and oriented x 3. Abdominal pain and chest tightness is better than of yesterday. Patient is able to tolerate liquids. complains of bloating and abdominal. Did have a bowel movement today. No episodes of vomiting. Nausea is improving. No cough or sputum production. Patient has been afebrile. No new laboratory data today. Procalcitonin level is 0.07. Chest x-ray this morning showed no evidence for acute pulmonary disease. Cefepime has been discontinued. 01/11/2024 Patient was seen and examined today. Abdominal pain is improving. General surgery following, discussed with general surgery, plan to monitor today, if remains symptomatic plan to get esophagogram tomorrow. Low suspicions of pneumonia, patient asymptomatic, will discontinue antibiotics. Assessment and plan: Epigastric pain and difficulty swallowing possible postoperative pain with stranding fat around the stomach and pancreas. Left lower lobe consolidative changes, doubt pneumonia. Repeat chest x-ray showed no acute process today. Procalcitonin level is not elevated. Stool burden Recent history of fundoplication on 01/06/2024. Postoperatively patient was not bradycardic. Seen by cardiology. Hypertension Hyperlipidemia History of MVP Hypothyroidism GERD Asthma History of TIA Plan: Patient will be current on IV hydration with normal saline. Antibiotic discontinued, patient asymptomatic,Procalcitonin negative. Encourage incentive spirometry. Symptomatic management for nausea and vomiting and pain management. Currently on Liquid diet. Continue with home medications and follow-up closely. Surgery is recommending conservative management at this time, if symptoms remain uncontrolled, plan for esophagogram. Discussed with general surgery today. DVT prophylaxis: Subcutaneous heparin PHYSICAL EXAMINATION: GENERAL: The patient is A&O x3, NAD HEENT: EOMI, Sclerae anicteric, Moist Mucous membranes Neck: Supple, Non tender, No JVD CARDIOVASCULAR: S1, S2 present. No murmurs, rubs, or gallops. PULMONARY: Equal breath souds B/L, No wheezing, No crackles. ABDOMEN: Soft, nontender, nondistended, normoactive bowel sounds. No guarding or rebound tenderness. MUSCULOSKELETAL: No edema, No cyanosis. No clubbing. Normal ROM. Intact peripheral pulses. Skin; Warm. No rash. REVIEW OF SYSTEMS: CONSTITUTIONAL: No fever or chills. CARDIOVASCULAR: No chest pain, palpitations or syncope. PULMONARY: No shortness of breath, no cough, sore throat. GASTROINTESTINAL: No nausea, vomiting, diarrhea, abdominal pain. : No Dysuria, urgency, frequency. Extremities: No edema. NEUROLOGICAL: No headaches, no weakness, or numbness Dictation was produced using [employer] dictation software. please excuse any gram matical, word or spelling errors. Objective - Vital Signs Vital signs: Vital Signs Temp 98.5 F 01/11/24 13:27 Pulse 75 01/11/24 13:27 Resp 18 01/11/24 13:27 BP 158/85 01/11/24 13:27 Pulse Ox 95 01/11/24 13:27 FiO2 Intake & Output 01/10/24 01/11/24 01/11/24 18:59 06:59 18:59 Other: Voiding Method Toilet # Voids 1 3 - Labs CBC & Chem 7: 01/11/24 06:29 01/11/24 06:25 Labs: Abnormal Lab Results - Last 24 Hours (Table) 01/11/24 01/11/24 Range/Units 06:25 06:29 RBC 3.26 L (4.10-5.20) X 10*6/uL Hgb 10.5 L (12.0-15.0) g/dL Hct 31.5 L (37.2-46.3) % MCH 32.2 H (27.0-32.0) pg Immature Gran # 0.05 H (0.00-0.04) X 10*3/uL Eosinophils # 0.36 H (0.04-0.35) X 10*3/uL BUN/Creatinine Ratio 11.88 L (12.00-20.00) Ratio Microbiology - Last 24 Hours (Table) 01/09/24 19:47 Blood Culture - Preliminary Blood 01/09/24 20:02 Blood Culture - Preliminary Blood
--- NOTE | 2024-01-11 19:56 | P.PN ---
Subjective Patient seen and evaluated at bedside. Patient complains of mild abd pain/discomfort Objective - Vital Signs Vital signs: Vital Signs Temp 98.0 F 01/11/24 19:38 Pulse 70 01/11/24 19:38 Resp 14 01/11/24 19:38 BP 166/77 01/11/24 19:38 Pulse Ox 95 01/11/24 19:38 FiO2 Intake & Output 01/11/24 01/11/24 01/12/24 06:59 18:59 06:59 Other: Voiding Method Toilet Toilet # Voids 3 2 - Exam gen: nad cv: rrr pul: non labored breathing abd: soft, mild distended, no guarding or rebound tenderness, surgical incisions c/d/i - Labs CBC & Chem 7: 01/11/24 06:29 01/11/24 06:25 Labs: Abnormal Lab Results - Last 24 Hours (Table) 01/11/24 01/11/24 Range/Units 06:25 06:29 RBC 3.26 L (4.10-5.20) X 10*6/uL Hgb 10.5 L (12.0-15.0) g/dL Hct 31.5 L (37.2-46.3) % MCH 32.2 H (27.0-32.0) pg Immature Gran # 0.05 H (0.00-0.04) X 10*3/uL Eosinophils # 0.36 H (0.04-0.35) X 10*3/uL BUN/Creatinine Ratio 11.88 L (12.00-20.00) Ratio Microbiology - Last 24 Hours (Table) 01/09/24 19:47 Blood Culture - Preliminary Blood 01/09/24 20:02 Blood Culture - Preliminary Blood Assessment and Plan Assessment: 78-year-old female with dysphagia and pain after recent hiatal hernia repair with fundoplication. -may benefit from esophagram to evaluate the degree of tightness. -For now we will continue to treat conservatively with sips of liquids. Time with Patient: Greater than 30
[2024-01-12 02:48] VITALS: RESP 18
--- NOTE | 2024-01-12 11:33 | P.PN ---
Subjective Progress Note Date: 01/12/24 Principal diagnosis: Dysphagia Patient doing better today. Complaining of diarrhea. Says she has had 10 loose stools today. No longer having the chest discomfort. No dysphagia. She is actually asking for soft foods diet. Antibiotics were discontinued yesterday. She is afebrile. Objective - Vital Signs Vital signs: Vital Signs Temp 98.1 F 01/12/24 07:12 Pulse 65 01/12/24 07:12 Resp 18 01/12/24 07:12 BP 181/75 01/12/24 07:12 Pulse Ox 94 L 01/12/24 07:12 FiO2 Intake & Output 01/11/24 01/12/24 01/12/24 18:59 06:59 18:59 Intake Total 900 Balance 900 Intake: Intake, IV Titration 900 Amount Sodium Chloride 0.9% 1, 900 000 ml @ 75 mls/hr IV . [id number] [facility] Rx#:[id number] Other: Voiding Method Toilet Toilet Toilet # Voids 2 6 - Exam Abdomen: Soft, nontender, nondistended, incisions clean and dry - Labs CBC & Chem 7: 01/11/24 06:29 01/11/24 06:25 Labs: Abnormal Lab Results - Last 24 Hours (Table) 01/11/24 01/11/24 Range/Units 06:25 06:29 RBC 3.26 L (4.10-5.20) X 10*6/uL Hgb 10.5 L (12.0-15.0) g/dL Hct 31.5 L (37.2-46.3) % MCH 32.2 H (27.0-32.0) pg Immature Gran # 0.05 H (0.00-0.04) X 10*3/uL Eosinophils # 0.36 H (0.04-0.35) X 10*3/uL BUN/Creatinine Ratio 11.88 L (12.00-20.00) Ratio Microbiology - Last 24 Hours (Table) 01/09/24 19:47 Blood Culture - Preliminary Blood 01/09/24 20:02 Blood Culture - Preliminary Blood Assessment and Plan (1) Post-operative pain Narrative/Plan: Patient doing well today. Continue full liquids for now. Monitor diarrhea. Continue incentive spirometry. Anticipate discharge tomorrow if doing well. Current Visit: Yes Status: Acute Code(s): G89.18 - OTHER ACUTE POSTPROCEDURAL PAIN SNOMED Code(s): 521409454
--- NOTE | 2024-01-12 14:17 | P.PN ---
Subjective Progress Note Date: 01/12/24 Interval History: Patient is a 78-year-old female with a past medical history of hypertension, hyperlipidemia, history of mitral valve prolapse, hypothyroidism and osteoarthritis and POTS and recent [place] fundoplication surgery. Patient was discharged home on 01/07/2024. Patient presents to ER with complaints of epigastric pain and unable to . patient is also having severe pain in the epigastric region and able to swallow anything. Today morning she was sitting in the chair and drinking water when she had progressive discomfort in her lower sternal region and epigastric region. Patient also states that she hurts when she takes deep breath. On admission blood pressure was elevated with SBP in 160s. 99% on room air. Patient is not tachycardic heart rate 65. Laboratory data showed WBC 5.8 hemoglobin 12.1 and platelets 252 Sodium 139 potassium 4.3 chloride 105 bicarb is 29 BUN 11 and creatinine 0.71 and blood sugar 95 liver enzymes showed AST 44 ALT 28 and alk phos 82 Chest x-ray showed borderline cardiomegaly and COPD. There are trace bilateral effusions. Correlate clinically for possible early fluid overload state. Nonobstructive bowel gas pattern. Mild stool burden. Lipase level 61 CTA chest showed no evidence of PE. Small volume consolidating pneumonia in the left lung base. Trace consolidation right lung base. CT of the abdomen pelvis showed Small patchy consolidation in the left lung base. Trace lower lobe consolidation right lung base. Trace bilateral pleural effusions. Fundoplication. Stranding is seen in the fat around the stomach and pancreas may represent postoperative change. Cannot exclude mild pancreatitis. Urinalysis is negative for infection. 01/10/2024 Patient is currently sitting on side of the bed. Awake alert and oriented x 3. Abdominal pain and chest tightness is better than of yesterday. Patient is able to tolerate liquids. complains of bloating and abdominal. Did have a bowel movement today. No episodes of vomiting. Nausea is improving. No cough or sputum production. Patient has been afebrile. No new laboratory data today. Procalcitonin level is 0.07. Chest x-ray this morning showed no evidence for acute pulmonary disease. Cefepime has been discontinued. 01/11/2024 Patient was seen and examined today. Abdominal pain is improving. General surgery following, discussed with general surgery, plan to monitor today, if remains symptomatic plan to get esophagogram tomorrow. Low suspicions of pneumonia, patient asymptomatic, will discontinue antibiotics. 01/11--patient was seen and examined today. Abdominal pain is better. General surgery following recommended to continue full liquids, patient complaining of loose stools, will monitor and if persistent diarrhea will check C. difficile. Assessment and plan: Epigastric pain and difficulty swallowing possible postoperative pain with str anding fat around the stomach and pancreas. Left lower lobe consolidative changes, doubt pneumonia. Repeat chest x-ray showed no acute process today. Procalcitonin level is not elevated. Stool burden diarrhea: Recent history of fundoplication on 01/06/2024. Postoperatively patient was not bradycardic. Seen by cardiology. Hypertension Hyperlipidemia History of MVP Hypothyroidism GERD Asthma History of TIA Plan: Patient will be current on IV hydration with normal saline. Antibiotic discontinued, patient asymptomatic,Procalcitonin negative. Encourage incentive spirometry. Symptomatic management for nausea and vomiting and pain management. Currently on Liquid diet. Continue with home medications and follow-up closely. Surgery is recommending conservative management at this time, if symptoms remain uncontrolled, plan for esophagogram. General surgery on board and following. Will check C. diff if persistent diarrhea. Anticipate discharge tomorrow if diarrhea better and symptoms remain controlled. DVT prophylaxis: Subcutaneous heparin PHYSICAL EXAMINATION: GENERAL: The patient is A&O x3, NAD HEENT: EOMI, Sclerae anicteric, Moist Mucous membranes Neck: Supple, Non tender, No JVD CARDIOVASCULAR: S1, S2 present. No murmurs, rubs, or gallops. PULMONARY: Equal breath souds B/L, No wheezing, No crackles. ABDOMEN: Soft, nontender, nondistended, normoactive bowel sounds. No guarding or rebound tenderness. MUSCULOSKELETAL: No edema, No cyanosis. No clubbing. Normal ROM. Intact peripheral pulses. Skin; Warm. No rash. REVIEW OF SYSTEMS: CONSTITUTIONAL: No fever or chills. CARDIOVASCULAR: No chest pain, palpitations or syncope. PULMONARY: No shortness of breath, no cough, sore throat. GASTROINTESTINAL: No nausea, vomiting, diarrhea, abdominal pain. : No Dysuria, urgency, frequency. Extremities: No edema. NEUROLOGICAL: No headaches, no weakness, or numbness Dictation was produced using [employer] software. please excuse any grammatical, word or spelling errors. Objective - Vital Signs Vital signs: Vital Signs Temp 98.1 F 01/12/24 07:12 Pulse 65 01/12/24 07:12 Resp 18 01/12/24 07:12 BP 181/75 01/12/24 07:12 Pulse Ox 94 L 01/12/24 07:12 FiO2 Intake & Output 01/11/24 01/12/24 01/12/24 18:59 06:59 18:59 Intake Total 900 Balance 900 Intake: Intake, IV Titration 900 Amount Sodium Chloride 0.9% 1, 900 000 ml @ 75 mls/hr IV . [id number] [facility] Rx#:[id number] Other: Voiding Method Toilet Toilet Toilet # Voids 2 6 - Labs CBC & Chem 7: 01/11/24 06:29 01/11/24 06:25 Labs: Microbiology - Last 24 Hours (Table) 01/09/24 19:47 Blood Culture - Preliminary Blood 01/09/24 20:02 Blood Culture - Preliminary Blood
[2024-01-12 20:05] VITALS: PULSE 70
[2024-01-13 02:03] VITALS: BP 131/73; TEMP 97.9
[2024-01-13] MEDS ORDERED: LEVOTHYROXINE 75 MCG TAB ONE (09:09)
[2024-01-13] MEDS ORDERED: FAMOTIDINE 20 MG TAB ONE (09:09)
[2024-01-13] MEDS ORDERED: HEPARIN SODIUM,PORCINE 5,000 UNIT/ML 1 ML VIAL ONE (09:09)
[2024-01-13] MEDS ORDERED: PANTOPRAZOLE 40 MG/10 ML VIAL ONE (09:09)
== END 2024-01-13 15:25 | disposition home or self-care (01) ==
LOC: EC 10:57 → 4SSUR 19:26
PROVIDERS: ADMIT Internal Medicine; ATTEND Internal Medicine
DX: G89.18 Other acute postprocedural pain (principal); R10.13 Epigastric pain; R13.10 Dysphagia, unspecified; J45.909 Unspecified asthma, uncomplicated; K21.9 Gastro-esophageal reflux disease without esophagitis; E78.5 Hyperlipidemia, unspecified; I10 Essential (primary) hypertension; E03.9 Hypothyroidism, unspecified; Z86.73 Personal history of transient ischemic attack (TIA), and cerebral infarction without residual deficits; Z79.890 Hormone replacement therapy; Z79.899 Other long term (current) drug therapy; Z88.0 Allergy status to penicillin; Z88.1 Allergy status to other antibiotic agents; Z91.040 Latex allergy status
CPT/HCPCS: 36415; 94760; 93005; 80053; 80048; 87449; 82150; 83605; 83690; 84484; 85025 ×2; 81001; 87040; 87324; 84145; 71046 ×2; 74018 ×2; 71275; 74177; J2270; J1200; J1644 ×3; J2405; J0456 ×3; J0692 ×2; J3490; Q9967; J2919; J2470 ×4; 96360; 96361; 96365; 96366; 96367; 96375; 96376; 99285

== ENCOUNTER → 2024-11-16 | Outpatient (CLI) | payer MEDICARE ==
--- NOTE | 2024-11-16 11:40 | US ---
EXAMINATION TYPE: US carotid duplex BILAT DATE OF EXAM: 11/16/2024 COMPARISON: NONE CLINICAL INDICATION: Female, 79 years old with history of R22.1 LOCALIZED SWELLING, MASS AND LUMP, NE CK; Additional History: .... TECHNIQUE: Grayscale, color Doppler and spectral Doppler evaluation of the bilateral carotid systems and vertebral arteries. Indirect Doppler criteria was utilized. FINDINGS: EXAM MEASUREMENTS: RIGHT: Peak Systolic Velocity (PSV) cm/sec ----- Right CCA: 40.9 ----- Right ICA: 126 ----- Right ECA: 73.9 ICA/CCA ratio: 3.0 RIGHT: End Diastole cm/sec ----- Right CCA: 9.1 ----- Right ICA: 26.4 ----- Right ECA: 7.4 LEFT: Peak Systolic Velocity (PSV) cm/sec ----- Left CCA: 50.9 ----- Left ICA: 80.2 ----- Left ECA: 75.7 ICA/CCA ratio: 1.6 LEFT: End Diastole cm/sec ----- Left CCA: 14.7 ----- Left ICA: 26.7 ----- Left ECA: 6.4 VERTEBRALS (direction of flow): Right Vertebral: Antegrade Left Vertebral: Antegrade Rhythm: Normal ABRASIVE MIXER NOTES: No elevated velocities, plaque or significant stenosis seen bilaterally Pt is feeling "lump" on Lt neck: Area of palp scanned: Multiple hypoechoic areas seen, Largest: 1. 0.8x0.5x0.9cm 2. 0.4x0.8x0.5cm These demonstrate normal central fatty hilum. Color Doppler imaging shows patency with blood flow throughout the carotid artery. Spectral waveforms are within normal limits. IMPRESSION: Right: No hemodynamically significant stenosis. Left: No hemodynamically significant stenosis. Few benign-appearing subcentimeter lymph nodes identified within the left neck at palpable abnormalit y. Criteria for Assigning % of Stenosis / Diameter reduction (Estimation based on the indirect measurements of the internal carotid artery velocities (ICA PSV). 1. Normal (no stenosis)=ICA PSV < 180 cm/s: ratio < 2.0: ICA EDV<40 cm/s. 2. Less than 50% stenosis=ICA PSV < 180 cm/s: ratio < 2.0: ICA EDV<40 cm/s. 3. 50 to 69% stenosis=ICA PSV of 180 to 230 cm/s: ration 2.0 ? 4.0: ICA EDV 40-100 cm/s. PSV 125-180 cm/sec and ICA/CCA PSV Ratio ? 2.0 is also consistent with 50-69% stenosis 4. Greater than 70% stenosis to near occlusion= ICA PSV > 230 cm/s: ratio > 4.0: ICA EDV > 100 cm/s. 5. Near occlusion= ICA PSV velocities may be low or undetectable: variable ratio and ICA EDV. 6. Total occlusion=unable to detect flow. [facility], , 11/16/2024 11:38 AM
== END | disposition home or self-care (01) ==
LOC: RADUSWWP 10:52
PROVIDERS: ATTEND Psychiatry & Neurology Neurology
DX: R22.1 Localized swelling, mass and lump, neck (principal)
CPT/HCPCS: 93880